=== PATIENT | female | born 1960 | race Caucasian/White ===

== ENCOUNTER 2020-04-12 07:51 | Outpatient (CLI) | payer OTHER, SELFPAY ==
--- NOTE | ~2020-04-12 | MM_ITS ---
EXAMINATION: MM screening juanita BI w vickie HISTORY: Screening mammogram TECHNIQUE: Craniocaudal and mediolateral oblique 3-D tomosynthesis images were obtained and synthetic 2-D images were generated. CAD analysis was submitted and interpreted. COMPARISON: 11/03/2015 bilateral digital screening mammogram BREAST PARENCHYMAL COMPOSITION: There are scattered areas of fibroglandular density. FINDINGS: There is postoperative change evident on the left including mild asymmetry and retraction T here is no evidence of suspicious mass, calcification, or architectural distortion to suggest maligna ncy in either breast. There has been no suspicious interval change. IMPRESSION: 1. No mammographic evidence of malignancy. 2. Recommend routine screening mammography in one year. BI-RADS Category 2: Benign finding(s). Reviewed, dictated and finalized at location A.
--- NOTE | ~2020-04-12 | DEXA_ITS ---
Bone Density Report Name: Sydney Enciso Age: 59 Sex: Female Ethnicity: White Date of : 1960 Indication: postmenopausal; height loss; hysterectomy; Referring Provider: ANGELA, KAMRYN Study: Bone densitometry was performed. Exam Date: April 12, 2020 Accession number: [id number] Bone Density: Region BMD T-score Z-score Classification AP Spine (L1-L4) 0.825 -2.0 -0.6 Osteopenia Femoral Neck (Left) 0.631 -2.0 -0.7 Osteopenia Total Hip (Left) 0.728 -1.8 -0.8 Osteopenia Total Hip Bilateral Avg 0.715 -1.9 -0.9 Osteopenia Femoral Neck (Right) 0.606 -2.2 -0.9 Osteopenia Total Hip (Right) 0.701 -2.0 -1.0 Osteopenia World Health Organization criteria for BMD impression classify patients as: Normal (T-score at or above -1.0), Osteopenia (T-score between -1.0 and -2.5), or Osteoporosis (T-score at or below -2.5). 10-year Fracture Risk(1): Major Osteoporotic Fracture 10% Hip Fracture 2.2% Reported Risk Factors: [place] (), Neck BMD=0.606, BMI=29.5, smoking (1) FRAX(R) Version 3.08. Fracture probability calculated for an untreated patient. Fracture probability may be lower if the patient has received treatment. Clinical Information Provided by Patient: Smokes Has the following medical conditions: Hysterectomy Patient maximum height was 66 Menopause Age: 21 No regular weight bearing exercise Drinks caffeinated beverages Onset of menses at age 13 Number of children 2 Impression: The patient has low bone mass, based on the Right Femoral Neck T-score. The patient has an estimated ten-year risk of hip fracture of 2.2% and an estimated ten-year risk of major fracture of 10%, based on the WHO FRAX algorithm. The patient has risk factors, including: smoking. Discussion: BONE DENSITY IS LOW AT ONE OR MORE SKELETAL SITES. This patient's lowest T-score is low at one or more skeletal sites. It meets the World Health Organization's (WHO) criteria for ?low bone mass? (T-score between -1.0 and -2.5). The patient's 10-year risk of fracture as calculated by FRAX is less than the threshold where pharmacological therapy is recommended by the National Osteoporosis Foundation (NOF). However, all treatment decisions require clinical judgment and consideration of individual patient factors, including patient preferences, comorbidities, previous drug use, risk factors not captured in the FRAX model (e.g., frailty, falls, vitamin D deficiency, increased bone turnover, interval significant decline in bone density) and possible under or overestimation of fracture risk by FRAX. The patient should follow a healthful lifestyle (good nutrition with adequate calcium and vitamin D, and appropriate weight-bearing exercise). Follow-Up: Consider repeating this study in 2 to 3 years to reassess this patient's status, or sooner if there i
== END 2020-04-12 07:52 | disposition home or self-care (01) ==
PROVIDERS: PCP Nurse Practitioner Adult Health; Visit Provider Nurse Practitioner Adult Health
DX: Z12.31 Encounter for screening mammogram for malignant neoplasm of breast (principal); Z78.0 Asymptomatic menopausal state; M85.88 Other specified disorders of bone density and structure, other site; M85.852 Other specified disorders of bone density and structure, left thigh; M85.851 Other specified disorders of bone density and structure, right thigh
CPT/HCPCS: 77063; 77067; 77080

== ENCOUNTER 2020-04-21 15:12 | Outpatient (CLI) | payer OTHER, SELFPAY ==
--- NOTE | ~2020-04-21 | US_ITS ---
US renal BI 04/21/2020 15:57 Procedure: Realtime transabdominal ultrasound of the kidneys and bladder. Indication: Abnormal renal function Comparison: No prior studies for comparison. Findings: Renal echotexture is normal bilaterally without hydronephrosis, contour deforming mass or r enal calculus. The right kidney measures 7.5 cm and left kidney measures 10.6 cm. Bladder within nor mal limits. Impression: 1: Unremarkable renal ultrasound. No stones, masses or hydronephrosis. Reviewed, dictated and finalized at location A. Impression: 1: Unremarkable renal ultrasound. No stones, masses or hydronephrosis.
== END 2020-04-21 15:13 | disposition home or self-care (01) ==
LOC: ANHIMG 15:14
PROVIDERS: PCP Nurse Practitioner Adult Health; Visit Provider Nurse Practitioner Adult Health
DX: R94.4 Abnormal results of kidney function studies (principal)
CPT/HCPCS: 76775

== ENCOUNTER 2023-10-07 14:36 | Emergency (ER) | payer OTHER, SELFPAY ==
[2023-10-07] VITALS (8 sets, daily range): BP systolic 145–171; BP diastolic 79–84; PULSE 90–104; RESP 13–22; TEMP 36.6–37.9; O2SAT 94–99
--- NOTE | ~2023-10-07 | CT_ITS ---
EXAMINATION: CTA chest PE protocol DATE: 10/07/2023 18:54 INDICATION: Shortness of breath. Tachycardia and pleuritic chest pain TECHNIQUE: Computed tomography (CT) pulmonary angiogram of the chest was performed with 100 mL Omnipa que-350 intravenous contrast. Additional 3D reconstructions utilizing coronal maximum intensity proje ction (MIP) were performed. Automated exposure control and iterative reconstruction technique were em ployed. The dose-length product was 174.71 mGy-cm. COMPARISON: 10/12/2009 FINDINGS: No pulmonary embolism. Unchanged 3 mm noncalcified subpleural granuloma at the posterior segment of t he right upper lobe. Mild at dependent atelectasis in the bilateral lower lobes. No pneumonia, pulmon mai edema, pleural effusion or pneumothorax. Heart size is normal. Small amount of scattered atherosc lerotic coronary artery calcification. No pericardial effusion. Thoracic aorta is normal in caliber w ith no dissection. No pathologically enlarged thoracic lymphadenopathy. Diffuse hepatic steatosis wit h focal sparing along the gallbladder fossa. There is some atherosclerotic calcification along the ao rta and its major branch vessels in the superior mediastinum and upper abdomen. Stenting at the proxi mal right renal artery. There is asymmetric mild atrophy at the fundus of the pole the right kidney. Mild to moderate thoracic spondylosis with chronic mild anterior wedging at T7 and T8, minimally at T 9. IMPRESSION: 1. Minimal dependent atelectasis in the bilateral lower lobes. No pulmonary embolism or other acute c ardiopulmonary disease. 2. Mild emphysema. Reviewed, dictated and finalized at location A. R DESK CLERK IMPRESSION: 1. Minimal dependent atelectasis in the bilateral lower lobes. No pulmonary emb olism or other acute cardiopulmonary disease. 2. Mild emphysema.
--- NOTE | ~2023-10-07 | XR_ITS ---
EXAMINATION: XR chest 2V DATE: 10/07/2023 15:12 INDICATION: Chest pain and dyspnea TECHNIQUE: PA and lateral views of the chest were obtained. COMPARISON: Chest radiograph dated 08/12/2017 FINDINGS: The lungs remain clear with no focal airspace opacities, pulmonary edema, pleural effusion or pneumot horax. The cardiomediastinal silhouette is normal. Moderate thoracic spondylosis with chronic mild an terior wedging of a couple mid thoracic vertebral bodies. IMPRESSION: 1. No acute cardiopulmonary disease. Reviewed, dictated and finalized at location A. CTORY ASSISTANCE OPERATOR
--- NOTE | 2023-10-07 14:38 | ECG_ITS ---
Measurements Intervals [place] Rate: 104 P: 60 NC: 126 QRS: 35 QRSD: 81 T: 55 QT: 331 QTc: 436 Interpretive Statements SINUS TACHYCARDIA NO PREVIOUS ECG AVAILABLE FOR COMPARISON Electronically Signed On 10-08-2023 14:54:26 SAWMILL EQUIPMENT OPERATOR by Gregory Dixon M.D.
[2023-10-07 15:28] LABS: Basophils Percent Auto 0.8 % (0.2-1.2); Hematocrit 45.5 % (37.0-47.0); Hemoglobin 14.9 g/dL (12.0-15.0); Immature Granulocyte Absolute 0.01 K/mm3 (0.00-0.031); Immature Granulocyte Percent A 0.3 % (0-0.5); Lymphocytes Absolute Auto 0.49 K/mm3 (0.9-3.2); Lymphocytes Percent Auto 13.1 % (18.3-44.2); Mean Corpuscular HGB Conc 32.7 g/dl (32-36); Mean Corpuscular Hemoglobin 30.5 pg (26-34); Mean Corpuscular Volume 93.2 fl (80-100); Mean Platelet Volume 10.5 fl (7.4-10.4); Monocytes Absolute Auto 0.2 K/mm3 (0.1-0.6); Monocytes Percent Auto 5.9 % (2.6-8.5); Neutrophils Percent Auto 79.9 % (45.5-73.1); Platelet Count Result 232 k/mm3 (150-375); Red Blood Count 4.88 M/mm3 (4.2-5.4); Red Cell Distribution Width 12.9 % (11.5-14.5); White Blood Count 3.7 K/mm3 (4.5-10.0)
[2023-10-07 15:37] LABS: Alanine Aminotransferase 40 U/L (6-35); Albumin Level 3.9 g/dL (3.5-5.1); Alkaline Phosphatase 174 U/L (38-126); Anion Gap 11 mmol/L (8-16); Aspartate Amino Transferase 51 U/L (14-36); Bilirubin,Total 0.4 mg/dL (0.2-1.3); Blood Urea Nitrogen 8 mg/dL (7-17); Calcium 9.5 mg/dL (8.4-10.2); Carbon Dioxide 21 mmol/L (22-30); Chloride 103 mmol/L (98-107); Estimated CRCL calculation 51 ml/min; Estimated Glomerular Filt Rate > 60; Glucose 111 mg/dL (65-110); Lipase 74 U/L (23-300); Potassium 3.9 mmol/L (3.4-5.0); Sodium 135 mmol/L (137-145)
[2023-10-07 15:42] LABS: Prothrombin Time 13.4 Seconds (11.1-14.7)
[2023-10-07 15:43] LABS: Partial Thromboplastin Time 34.3 SECONDS (22.3-36.8)
[2023-10-07 15:48] LABS: Troponin I < 0.012 ng/mL (0.000-0.034)
--- NOTE | 2023-10-07 17:37 | ECG_ITS ---
Measurements Intervals [place] Rate: 99 P: 46 WI: 135 QRS: 39 QRSD: 82 T: 52 QT: 347 QTc: 446 Interpretive Statements SINUS RHYTHM MINIMAL ST DEPRESSION [0.025+ mV ST DEPRESSION] COMPARED TO ECG 10/07/2023 14:41:30 SINUS RHYTHM NOW PRESENT Electronically Signed On 10-08-2023 14:55:58 RIM FIRE PRIMING TOOL SETTER by Gregory Dixon M.D.
--- NOTE | 2023-10-07 17:54 | ED.CHESTPAIN ---
HPI - Chest Pain General Chief Complaint: Chest Pain Stated Complaint: Not feeling well since Saturday Time Seen by Provider: 10/07/23 16:53 History of Present Illness HPI narrative: 63-year-old female with a history of CAD, hypertension, GERD presenting with chest pain. Patient states that she has been feeling generally unwell for the last 2 days. States that she has had a dry cough and body aches. Today she developed pleuritic chest pain and shortness of breath so she came in for evaluation. States that she had a slight fever or earlier as well. Reports nausea but no vomiting. No abdominal pain or diarrhea. No leg swelling. No dysuria or hematuria. No numbness or weakness. Related Data Allergies Allergy/AdvReac Type Severity Reaction Status Date / Time meperidine Allergy Unknown Verified 08/12/17 07:08 Review of Systems Review of Systems: All systems reviewed & are unremarkable except as noted in HPI and below PMFSH Social History Social History Smoking status: Smoker, status unknown Alcohol intake: current Exam Narrative: GENERAL: Nontoxic, no acute distress, pleasant cooperative HEAD: Normocephalic, atraumatic. EYES: PERRLA and EOMI. ENT: + nasal congestion NECK: Supple. CHEST: Clear to auscultation. No respiratory distress. HEART: Tachycardic, regular rhythm ABDOMEN: Soft, nontender, nondistended EXTREMITIES: Normal range of motion. No edema. SKIN: Warm, dry, no rash. NEURO: No focal deficits. Alert and oriented x3. PSYCH: Normal mood and affect. Course Vital Signs Vital signs: Vital Signs Temperature 100.3 F H 10/07/23 15:18 Pulse Rate 104 H 10/07/23 15:18 Respiratory Rate 18 10/07/23 15:18 Blood Pressure 148/79 H 10/07/23 15:18 Pulse Oximetry 97 10/07/23 15:18 Temperature 98 F 10/07/23 19:09 Pulse Rate 95 10/07/23 19:09 Respiratory Rate 18 10/07/23 19:09 Blood Pressure 165/80 H 10/07/23 19:09 Pulse Oximetry 94 10/07/23 19:09 MDM - Chest Pain MDM Narrative Medical decision making narrative: 63-year-old female presenting with pleuritic chest pain and shortness of breath. Patient is tachycardic on arrival. Normotensive and saturating well. Blood work with mild leukopenia. Troponin undetectable. EKG per my interpretation shows normal sinus rhythm, very minimal ST depressions, no ST elevations. CTA chest without no evidence of pulmonary embolism. Her is mild emphysema. She is positive for influenza A. Patient feels better following IV fluids and Zofran. Feel she is safe for outpatient management. Send in for some Zofran for nausea as well as an inhaler. Advised close PCP follow-up. Appropriate return precautions given. Patient is agreeable this plan. Discharged in stable condition. Differential Diagnosis Differential diagnosis: Likely atypical chest pain, costochondritis, chest pain and other (Pulmonary embolism, influenza a, COVID) Medical Records Data Attestation: I reviewed the patient's medical records. Lab Data Attestation: I reviewed the patient's lab results. 10/07/23 14:58 10/07/23 14:58 Labs: Lab Results 10/07/23 10/07/23 10/07/23 Range/Units 14:58 17:41 17:43 WBC 3.7 L (4.5-10.0) K/mm3 RBC 4.88 (4.2-5.4) M/mm3 Hgb 14.9 (12.0-15.0) g/dL Hct 45.5 (37.0-47.0) % MCV 93.2 (80-100) fl MCH 30.5 (26-34) pg MCHC 32.7 (32-36) g/dl RDW 12.9 (11.5-14.5) % Plt Count 232 (150-375) k/mm3 MPV 10.5 H (7.4-10.4) fl Immature Gran % (Auto) 0.3 (0-0.5) % Neut % (Auto) 79.9 H (45.5-73.1) % Lymph % (Auto) 13.1 L (18.3-44.2) % [place] % (Auto) 5.9 (2.6-8.5) % Eos % (Auto) 0.0 (0-4.4) % Baso % (Auto) 0.8 (0.2-1.2) % Lymph # (Auto) 0.49 L (0.9-3.2) K/mm3 [place] # (Auto) 0.2 (0.1-0.6) K/mm3 Eos # (Auto) 0.0 (0-0.3) K/mm3 Baso # (Auto) 0.0 (0.0-0.1) K/mm3 Abs
[2023-10-07 18:09] LABS: Troponin I < 0.012 ng/mL (0.000-0.034)
[2023-10-07] MEDS: ONDANSETRON INJ 4 MG/2 ML VIAL IV PUSH (18:16)
[2023-10-07] MEDS: SODIUM CHLORIDE 0.9% IV 1,000 ML 999 ML IV CONT (18:16)
[2023-10-07 18:41] LABS: Influenza A QL RT-PCR Positive (Negative); Influenza B QL RT-PCR Negative (Negative); RSV RNA, RT-PCR Negative (Negative); SARS-CoV-2 RNA PCR Negative (Negative)
== END 2023-10-07 21:12 | disposition home or self-care (01) ==
PROVIDERS: Emergency Provider Emergency Medicine; PCP Internal Medicine
DX: J10.1 Influenza due to other identified influenza virus with other respiratory manifestations (principal); Z20.822 Contact with and (suspected) exposure to COVID-19; I25.10 Atherosclerotic heart disease of native coronary artery without angina pectoris; I10 Essential (primary) hypertension; K21.9 Gastro-esophageal reflux disease without esophagitis; J43.9 Emphysema, unspecified; R00.0 Tachycardia, unspecified
CPT/HCPCS: 36415; 71046; 71275; 80053; 83690; 84484; 85025; 85610; 85730; 87637; 93005; 96361; 96374; 99284; J2405; J7030; Q9967

== ENCOUNTER 2024-07-14 09:41 | Emergency (ER) | payer OTHER, SELFPAY ==
[2024-07-14] VITALS (8 sets, daily range): BP systolic 137–213; BP diastolic 63–92; PULSE 58–90; RESP 15–23; TEMP 36.3–36.4; O2SAT 97–100
--- NOTE | ~2024-07-14 | CT_ITS ---
EXAMINATION: CTA BRAIN/CAROTID DATE: 07/14/2024 12:32 INDICATION: Near syncope. Carotid artery stenosis. TECHNIQUE: Computed tomographic angiography (CTA) of the head and neck was performed with 100 mL Omni paque-350 intravenous contrast. Multiplanar reconstructions and maximum intensity projection 3D-recon structions of the carotid arteries and of the intracranial arteries were created by the technologist on a separate workstation. Precontrast CT of the head was also obtained. Automated exposure control and iterative reconstruction technique were employed.The dose-length product was 1616.46 mGy-cm. COMPARISON: None. FINDINGS: Carotid arteries: The visualized portions of the thoracic aorta is normal in caliber with no dissection. Small amount o f atherosclerotic plaque without hemodynamic significant stenosis along the aortic arch and origin of the great vessels arising from the arch. Bilateral vertebral arteries are codominant with no stenosi s. There is 20% stenosis of the right carotid bulb relative to normal distal artery lumen diameter (N ASCET criteria). There is atherosclerotic plaque at the bifurcation of the distal left common carotid artery with 40% stenosis. There is a small amount of atherosclerotic plaque with 0% stenosis of the left carotid bulb relative to normal distal artery lumen diameter. Visualized upper lungs are clear. Moderate cervical spondylosis. Head: No acute intracranial hemorrhage, acute infarction or abnormal extra axial fluid collection. Ventricl es are normal and symmetric. No mass/mass effect. No abnormally enhancing brain lesions on the postco ntrast imaging. The orbits, paranasal sinuses and mastoid air cells are normal. Intracranial arteries Vertebral arteries are codominant. There is atherosclerotic plaque along the intracranial portions of the bilateral vertebral arteries with and moderate 50-70% stenosis at the left vertebral artery and 30% stenosis at the right vertebral artery. There is atherosclerotic plaque with no hemodynamically s ignificant stenosis at the bilateral carotid siphons. There is no hemodynamically significant stenosi s in the basilar artery. There are no aneurysms identified. Both A1 and P1 segments are patent. Ther e is also a patent anterior communicating artery and patent very small left and tiny right posterior communicating arteries. Cerebral arterial arborization appears symmetric. IMPRESSION: 1. 20% stenosis of the right carotid bulb relative to normal distal artery lumen diameter (NASCET cri teria). 2. Small amount of atherosclerotic plaque with 0% stenosis of the left carotid bulb relative to rossana l distal artery lumen diameter. Of note there is a 40% stenosis at the bifurcation of the distal left common carotid artery. 3. No acute intracranial process or abnormally enhancing brain lesions. 4. Atherosclerotic plaque without hemodynamically significant stenosis at the bilateral carotid sipho ns and intracranial right vertebral artery with a 50-70% stenosis at the intracranial left vertebral artery. Reviewed, dictated and finalized at location B. ESSOGRAPH OPERATOR IMPRESSION: 1. 20% stenosis of the right carotid bulb relative to normal distal artery lume n diameter (NASCET criteria). 2. Small amount of atherosclerotic plaque with 0% stenosis of the left carotid bulb relative to normal distal artery lumen diameter. Of note there is a 40% st enosis at the bifurcation of the distal left common carotid artery. 3. No acute intracranial process or abnormally enhancing brain lesions. 4. Atherosclerotic plaque without hemodynamically significant stenosis at the b ilateral carotid siphons and intracranial right vertebral artery with a 50-70% stenosis at the intracranial left vertebral artery.
--- NOTE | ~2024-07-14 | XR_ITS ---
XR chest 1V portable Ordering provider: Luis Regalado PA-C History: 63 years Female with . CP, tightness . Comparison: None. FINDINGS: MEDIASTINUM: The cardiac silhouette is not enlarged. LUNGS: No infiltrates, effusions or pneumothorax. OTHER: No free air under the diaphragm. Degenerative changes of the spine. IMPRESSION: No acute cardiopulmonary pathology. Reviewed, dictated and finalized at location A. ARE ANALYST
--- NOTE | 2024-07-14 10:20 | ED_ITS ---
HPI - Recheck/Abnormal Lab/Rx General Chief Complaint: Recheck/Abnormal Lab/Rx Stated Complaint: HTN Time Seen by Provider: 07/14/24 10:20 Source: patient Mode of arrival: ambulatory Limitations: no limitations History of Present Illness HPI narrative: This is a 63-year-old female with PMH of HTN, HLD, CAD who presents to the ED for chief complaint of had dizziness and feeling unwell a beginning yesterday. Reports that her blood pressure but has been uncontrolled over the past couple of months. She had an episode yesterday on the toilet where she felt like she might pass out. Reports she has been feeling anxious, lightheaded, had nausea and chest tightness. Describes a heaviness on the chest that has been intermittent. Reports that usually only last for a couple of minutes. Denies shortness of breath, cough, fevers, chills, nausea, vomiting, diarrhea, abdominal pain. Also reports that she has had known carotid stenosis about 69% Related Data Allergies Allergy/AdvReac Type Severity Reaction Status Date / Time meperidine Allergy Unknown Unknown Verified 07/14/24 10:40 Review of Systems Review of Systems: All systems as dictated in [facility] Social History Social History Smoking status: Smoker, status unknown Alcohol intake: current Exam Narrative: GENERAL: Well-appearing, well-nourished, and in no acute distress. HEAD: Normocephalic, atraumatic. EYES: PERRLA and EOMI. ENT: Nares clear, no rhinorrhea or epistaxis. Mucous membranes moist. Oropharynx without tonsillar hypertrophy exudate or other lesions. NECK: Supple. No adenopathy or masses. CHEST: No respiratory distress. Clear to auscultation. No wheezes rales or rhonchi HEART: Regular rate and rhythm. No murmur heard. Normal peripheral pulses. ABDOMEN: Soft, nontender, nondistended, normal active bowel sounds. MSK: Normal range of motion. No edema. SKIN: Warm, dry, no rash. NEURO: Alert and oriented x4. No focal deficits. PSYCH: Normal mood and affect. Course Vital Signs Vital signs: Vital Signs Temperature 97.5 F L 07/14/24 09:46 Pulse Rate 90 07/14/24 09:46 Respiratory Rate 18 07/14/24 09:46 Blood Pressure 192/92 H 07/14/24 09:46 Pulse Oximetry 100 07/14/24 09:46 Oxygen Delivery Room Air 07/14/24 09:46 Temperature 97.4 F L 07/14/24 13:57 Pulse Rate 59 L 07/14/24 13:57 Respiratory Rate 15 07/14/24 13:57 Blood Pressure 155/70 H 07/14/24 13:57 Pulse Oximetry 97 07/14/24 13:57 Oxygen Delivery Room Air 07/14/24 09:46 MDM - Recheck/Abnormal Lab/Rx MDM Narrative Medical decision making narrative: This is a 63-year-old female who presents to the ED for chief complaint of elevated blood pressure and feeling unwell with dizziness. Vitals showing elevated blood pressure but otherwise normal. Exam is benign. No neurologic deficit. She does have complaint of intermittent chest pain. ECG shows normal sinus rhythm. Lab work is grossly unremarkable. Serial troponins are normal. D-dimer negative. Patient was also reporting history of carotid stenosis so CTA was ordered. CTA head and neck: IMPRESSION: 1. 20% stenosis of the right carotid bulb relative to normal distal artery lumen diameter (NASCET criteria). 2. Small amount of atherosclerotic plaque with 0% stenosis of the left carotid bulb relative to normal distal artery lumen diameter. Of note there is a 40% stenosis at the bifurcation of the distal left common carotid artery. 3. No acute intracranial process or abnormally enhancing brain lesions. 4. Atherosclerotic plaque without hemodynamically significant stenosis at the bilateral carotid siphons and intracranial right vertebral artery with a 50-70% stenosis at the intracranial left vertebral artery. Patient was given dose of labetalol which did bring her pressure down into the 150s. She is feeling well on re-evaluation. Presentation consistent with asymptomatic hypertension. Patient will be discharged in stable condition. Supportive measures discussed and return precautions given. Patient is understanding and agreeable with plan for discharge with PCP follow-up. Lab Data 07/14/24 10:35 07/14/24 10:35 Labs: Lab Results 07/14/24 07/14/24 07/14/24 Range/Units 10:35 10:55 13:22 WBC 5.6 (4.5-10.0) K/mm3 RBC 4.76 (4.2-5.4) M/mm3 Hgb 14.8 (12.0-15.0) g/dL Hct 43.9 (37.0-47.0) % MCV 92.2 (80-100) fl MCH 31.1 (26-34) pg MCHC 33.7 (32-36) g/dl RDW 12.9 (11.5-14.5) % Plt Count 288 (150-375) k/mm3 MPV 9.8 (7.4-10.4) fl Immature Gran % (Auto) 0.4 (0-0.5) % Neut % (Auto) 69.7 (45.5-73.1) % Lymph % (Auto) 21.3 (18.3-44.2) % [place] % (Auto) 5.7 (2.6-8.5) % Eos % (Auto) 2.0 (0-4.4) % Baso % (Auto) 0.9 (0.2-1.2) % Lymph # (Auto) 1.19 (0.9-3.2) K/mm3 [place] # (Auto) 0.3 (0.1-0.6) K/mm3 Eos # (Auto) 0.1 (0-0.3) K/mm3 Baso # (Auto) 0.1 (0.0-0.1) K/mm3 Abs Immat Gran (auto) 0.02 (0.00-0.031) K/mm3 Absolute Neuts (auto) 3.9 (1.3-6.7) K/mm3 Absolute Nucleated RBC 0.000 (0.0-0.012) K/mm3 Nucleated RBC % 0.0 (0.0-0.2) % PT 13.3 (11.1-14.7) Seconds INR 1.0 APTT 24.4 (22.3-36.8) Seconds D-Dimer 0.46 (<0.48) ug/mL Sodium 137 (137-145) mmol/L Potassium 4.1 (3.4-5.0) mmol/L Chloride 105 (98-107) mmol/L Carbon Dioxide 28 (22-30) mmol/L Anion Gap 4 (4-12) mmol/L BUN 12 (7-17) mg/dL Creatinine 1.00 (0.7-1.0) mg/dL Estim Creat Clear Calc 46 ml/min Estimated GFR 56 L (59 - ) Glucose 95 (65-110) mg/dL Calcium 9.6 (8.4-10.2) mg/dL Total Bilirubin 0.7 (0.2-1.3) mg/dL AST 22 (14-36) U/L ALT 11 (6-35) U/L Alkaline Phosphatase 114 (38-126) U/L Troponin I < 0.012 < 0.012 (0.000-0.034) ng/mL NT-Pro-B Natriuret Pep 101 H (19.9-100) pg/mL Total Protein 8.0 (6.3-8.2) g/dL Albumin 4.2 (3.5-5.1) g/dL Lipase 97 (23-300) U/L Urine Color Yellow (Yellow) Urine Appearance Clear (Clear) Urine pH 6.0 (5.0-9.0) Ur Specific [place] 1.007 (1.001-1.035) Urine Protein Negative (Negative) mg/dL Urine Glucose (UA) Negative (Negative) mg/dL Urine Ketones Negative (Negative) mg/dL Ur Blood (Man) Negative (Negative) Urine Nitrate Negative (Negative) Urine Bilirubin Negative (Negative) Urine Urobilinogen 0.2 (<2.0) mg/dL Leukocyte Esterase Rfl Negative (Negative) RUTHIE/UL Discharge Plan Discharge Clinical Impression: HTN (hypertension) Patient Disposition: Home, Self-Care Condition: Stable Instructions: Antibiotic Form, Chronic Hypertension (ED) Additional Instructions: exam and imaging today are reassuring. Please follow-up very closely with your doctor regarding blood pressure. Stay well hydrated at home and continue taking your medications as prescribed. If you have any new or worsening symptoms please return to the ER for further evaluation. Prescriptions: No Action albuterol sulfate 90 mcg/actuation HFA aerosol inhaler 2 puff inhalation QID PRN (Reason: shortness of breath or wheezing) Qty: 6.7 0RF ondansetron 4 mg tablet,disintegrating 4 mg PO Q8H PRN (Reason: nausea and vomiting) Qty: 14 0RF Follow-up/Referrals: Henok,Evaristo Arambula MD [Primary Care Provider] - Time of Disposition: 13:33
--- NOTE | 2024-07-14 10:28 | ECG_ITS ---
Test Date: 2024-07-14 10:41:40 Measurements Intervals [place] Rate: 62 P: 48 OR: 159 QRS: 26 QRSD: 80 T: 36 QT: 402 QTc: 409 Interpretive Statements SINUS RHYTHM POSSIBLE RIGHT VENTRICULAR CONDUCTION DELAY BORDERLINE ECG No previous ECG available for comparison Electronically Signed On 07-14-2024 10:51:36 SECOND SHIFT SUPERVISOR by Antoine Gandhi D.O.
[2024-07-14] MEDS: LABETALOL HCL INJ 100 MG/20 ML VIAL 10 MG IV PUSH (10:36)
[2024-07-14 10:41] LABS: Basophils Absolute Auto 0.1 K/mm3 (0.0-0.1); Basophils Percent Auto 0.9 % (0.2-1.2); Eosinophils Absolute Auto 0.1 K/mm3 (0-0.3); Hematocrit 43.9 % (37.0-47.0); Hemoglobin 14.8 g/dL (12.0-15.0); Immature Granulocyte Absolute 0.02 K/mm3 (0.00-0.031); Immature Granulocyte Percent A 0.4 % (0-0.5); Lymphocytes Absolute Auto 1.19 K/mm3 (0.9-3.2); Lymphocytes Percent Auto 21.3 % (18.3-44.2); Mean Corpuscular HGB Conc 33.7 g/dl (32-36); Mean Corpuscular Hemoglobin 31.1 pg (26-34); Mean Corpuscular Volume 92.2 fl (80-100); Mean Platelet Volume 9.8 fl (7.4-10.4); Monocytes Absolute Auto 0.3 K/mm3 (0.1-0.6); Monocytes Percent Auto 5.7 % (2.6-8.5); Neutrophils Absolute Auto 3.9 K/mm3 (1.3-6.7); Neutrophils Percent Auto 69.7 % (45.5-73.1); Platelet Count Result 288 k/mm3 (150-375); Red Blood Count 4.76 M/mm3 (4.2-5.4); Red Cell Distribution Width 12.9 % (11.5-14.5); White Blood Count 5.6 K/mm3 (4.5-10.0)
[2024-07-14 10:51] LABS: Alanine Aminotransferase 11 U/L (6-35); Albumin Level 4.2 g/dL (3.5-5.1); Alkaline Phosphatase 114 U/L (38-126); Anion Gap 4 mmol/L (4-12); Aspartate Amino Transferase 22 U/L (14-36); Bilirubin,Total 0.7 mg/dL (0.2-1.3); Blood Urea Nitrogen 12 mg/dL (7-17); Calcium 9.6 mg/dL (8.4-10.2); Carbon Dioxide 28 mmol/L (22-30); Chloride 105 mmol/L (98-107); Estimated CRCL calculation 46 ml/min; Estimated Glomerular Filt Rate 56; Glucose 95 mg/dL (65-110); Lipase 97 U/L (23-300); Potassium 4.1 mmol/L (3.4-5.0); Sodium 137 mmol/L (137-145)
[2024-07-14 10:55] LABS: Partial Thromboplastin Time 24.4 Seconds (22.3-36.8); Prothrombin Time 13.3 Seconds (11.1-14.7)
[2024-07-14 11:02] LABS: NT Pro B Type Natriuretic Pept 101 pg/mL (19.9-100); Troponin I < 0.012 ng/mL (0.000-0.034)
[2024-07-14 11:03] LABS: Add Urine Microscopic? NO; Appearance Urine Clear (Clear); Bilirubin Urine Negative (Negative); Blood Urine Negative (Negative); Color Urine Yellow (Yellow); Glucose Urine UA Negative (Negative); Ketones Urine Negative (Negative); Leukocyte Esterase Ur Negative LEU/UL (Negative); Nitrate Urine Negative (Negative); Protein Urine Negative (Negative); Specific Grav Ur 1.007 (1.001-1.035); Urobilinogen Urine 0.2 mg/dL (<2.0)
[2024-07-14 11:23] LABS: D Dimer 0.46 ug/mL (<0.48)
--- NOTE | 2024-07-14 13:11 | ECG_ITS ---
Test Date: 2024-07-14 13:20:47 Measurements Intervals [place] Rate: 58 P: 52 MI: 170 QRS: 18 QRSD: 93 T: 5 QT: 417 QTc: 410 Interpretive Statements SINUS BRADYCARDIA WITH SINUS ARRHYTHMIA INCOMPLETE RIGHT BUNDLE BRANCH BLOCK BORDERLINE ST-T WAVE ABNORMALITY- ANTEROLAT/INF LEADS BASELINE ARTIFACT- I, II, III, AVR, AVL ,AVF BORDERLINE ECG Compared to ECG 07/14/2024 10:41:40 NO SIGNIFICANT CHANGE Electronically Signed On 07-14-2024 13:30:34 PATROL MAN by Antoine Gandhi D.O.
[2024-07-14 13:49] LABS: Troponin I < 0.012 ng/mL (0.000-0.034)
== END 2024-07-14 14:00 | disposition home or self-care (01) ==
PROVIDERS: Emergency Provider Physician Assistant; PCP Internal Medicine
DX: I10 Essential (primary) hypertension (principal); E78.5 Hyperlipidemia, unspecified; I25.10 Atherosclerotic heart disease of native coronary artery without angina pectoris; I65.03 Occlusion and stenosis of bilateral vertebral arteries; R00.1 Bradycardia, unspecified; I45.10 Unspecified right bundle-branch block; R94.31 Abnormal electrocardiogram [ECG] [EKG]
CPT/HCPCS: 36415; 70496; 70498; 71045; 80053; 81003; 83690; 83880; 84484; 85025; 85380; 85610; 85730; 93005; 96374; 99284; Q9967